=== PATIENT | male | born 1955 | race African-American/Black ===

== ENCOUNTER 2016-09-10 18:05 | Emergency (ER) | payer OTHER ==
[2016-09-10 18:20] VITALS: BP 133/86; PULSE 82; TEMP 98.3; BMI 25.5
--- NOTE | 2016-09-10 19:08 | PDOC ---
History of Present Illness - General Chief Complaint: Cold Symptoms Stated Complaint: HEAD COLD Time Seen by Provider: 09/10/16 18:52 History Source: Patient - History of Present Illness Initial Comments: 09/10/16 19:03 60 year old " head cold" x 2 days reports nasal congestion and facial pressure, yellow/green mucous. reports no relief in symptoms with dayquil/nyquil. denies fever, cough, chest pain, headache Past History - Past Medical History Allergies/Adverse Reactions: Allergies Allergy/AdvReac Type Severity Reaction Status Date / Time brompheniramine maleate AdvReac Verified 09/10/16 18:20 [From Dimetapp Cold-Allergy (PE)] phenylephrine HCl AdvReac Verified 09/10/16 18:20 [From Dimetapp Cold-Allergy (PE)] Home Medications: Ambulatory Orders Verapamil HCl [Covera-Hs] 180 mg PO DAILY 07/02/14 Amox-Tr/K Cl [Augmentin - 875Mg Tablet] 1 tab PO BID #14 tablet 09/10/16 Fluticasone Prop 0.05% Nasal [Flonase -] 1 - 2 spray NS BID #1 spray.pump HTN: Yes - Surgical History Abdominal Surgery: (HERNIA REPAIR) Cholecystectomy: Yes (GALLBLADDER) - Psycho/Social/Smoking Cessation Hx Anxiety: No Suicidal Ideation: No Smoking History: Never smoked Number of Cigarettes Smoked Daily: 0 Hx Alcohol Use: No Drug/Substance Use Hx: No Review of Systems - Review of Systems HEENTM: Yes: Nose Congestion (with yellow nasal drainage) *Physical Exam - Vital Signs Last Vital Signs Temp Pulse Resp BP Pulse Ox 98.3 F 82 18 133/86 98 09/10/16 18:16 09/10/16 18:16 09/10/16 18:16 09/10/16 18:16 09/10/16 18:16 - Physical Exam General Appearance: Yes: Appropriately Dressed HEENT: positive: Nasal Congestion, Sinus Tenderness (mild frontal sinus tenderness), Other Respiratory/Chest: positive: Lungs Clear, Normal Breath Sounds Cardiovascular: positive: Regular Rhythm, Regular Rate Medical Decision Making - Medical Decision Making a: sinusitis p: flonase augmentin pmd follow up. *DC/Admit/Observation/Transfer Diagnosis at time of Disposition: Sinusitis Qualifiers: Sinusitis location: frontal Chronicity: acute Recurrence: not specified as recurrent Qualified Code(s): J01.10 - Acute frontal sinusitis, unspecified - Discharge Dispostion Disposition: HOME Condition at time of disposition: Good - Prescriptions Prescriptions: Amox-Tr/K Cl [Augmentin - 875Mg Tablet] 1 tab PO BID #14 tablet Fluticasone Prop 0.05% Nasal [Flonase -] 1 - 2 spray NS BID #1 spray.pump - Patient Instructions Printed Discharge Instructions: DI for Common Cold Additional Instructions: continue flonase x 3 days. take augmentin as prescribed. take tylenol/ibuprofen as prescribed. follow up with your doctor as soon as possible.
== END 2016-09-10 19:21 | disposition home or self-care (01) ==
LOC: JERFT 18:05
DX: J01.10 Acute frontal sinusitis, unspecified (principal); I10 Essential (primary) hypertension
CPT/HCPCS: 99281-25

== ENCOUNTER 2019-07-04 19:16 | Emergency (ER) | payer OTHER ==
[2019-07-04 20:13] VITALS: BP 164/90; PULSE 80; TEMP 98.1; BMI 25.4
[2019-07-04] MEDS ORDERED: ACETAMINOPHEN 500 MG TABLET (FP) PO ONE (20:28)
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
[2019-07-04] MEDS ORDERED: DIPHTH,PERTUSS(ACELL),TET 0.5 ML DISP.SYRIN IM ONE ×2 (20:32→20:37)
[2019-07-04] MEDS ORDERED: BACITRACIN 0.9 GM PACKET TP ONE (20:32)
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
[2019-07-04] MEDS ORDERED: ACETAMINOPHEN 325 MG TABLET (FP) ONE (20:36)
[2019-07-04] MEDS ORDERED: BACITRACIN 0.9 GM PACKET ONE (20:36)
== END 2019-07-04 21:23 | disposition home or self-care (01) ==
LOC: JER 19:16
PROC: 3E0234Z Introduction of Serum, Toxoid and Vaccine into Muscle, Percutaneous Approach (ICD-10-PCS; principal; 2019-07-04)
DX: T25.221A Burn of second degree of right foot, initial encounter (principal); T23.172A Burn of first degree of left wrist, initial encounter; I10 Essential (primary) hypertension; K92.9 Disease of digestive system, unspecified; Z88.8 Allergy status to other drugs, medicaments and biological substances
CPT/HCPCS: 90715; 99284-25

== ENCOUNTER 2023-01-01 19:09 | Emergency (ER) | payer OTHER ==
[2023-01-01 19:37] VITALS: BP 137/79; PULSE 79; RESP 18; TEMP 98.5; BMI 25.1
[2023-01-01] MEDS ORDERED: ACETAMINOPHEN 500 MG TABLET (FP) PO ONE (20:10)
[2023-01-01] MEDS ORDERED: predniSONE 20 MG TABLET (UD) PO ONE (20:10)
[2023-01-01] MEDS ORDERED: predniSONE 20 MG TABLET (UD) ONE (20:11)
[2023-01-01] MEDS ORDERED: ACETAMINOPHEN 500 MG TABLET (FP) ONE (20:11)
== END 2023-01-01 20:26 | disposition home or self-care (01) ==
LOC: JERFT 19:09
DX: M54.31 Sciatica, right side (principal); M79.10 Myalgia, unspecified site
CPT/HCPCS: 99283-25